=== PATIENT | female | born 1975 | race Caucasian/White ===

== ENCOUNTER 2016-06-28 19:00 | Inpatient (IN) | payer MEDICAID, OTHER ==
[~2016-06-28] VITALS: Ht 154.9 cm; Wt 63.5 kg
[2016-06-28 19:12] VITALS: Ht 154.9 cm; Wt 63.5 kg
[2016-06-28] MEDS ORDERED: FAMOTIDINE 20 MG INJ IV STA (19:41)
[2016-06-28] MEDS ORDERED: ONDANSETRON 4 MG INJ IV STA (19:41)
[2016-06-28] MEDS ORDERED: SOD CHLORIDE 0.9% 1,000 ML IV STA (19:41)
[2016-06-28] MEDS ORDERED: DICYCLOMINE 10 MG CAP PO ONE (20:00)
[2016-06-28 20:02] LABS: ADD SCAN DIFF NO
[2016-06-28 20:03] LABS: ABNORMAL IP MESSAGE 1; HEMATOCRIT 44.7 % (37.0-47.0); HEMOGLOBIN 15.2 g/dl (12.0-16.0); MEAN CORPUSCULAR HEMOGLOBIN 30.2 pg (29.0-33.0); MEAN CORPUSCULAR VOLUME 88.9 fl (82.0-101.0); MEAN PLATELET VOLUME 10.5 fl (7.4-10.4); PLATELET COUNT 322 10^3/UL (140-415); RED BLOOD COUNT 5.03 10^6/ul (4.20-5.40); RED CELL DISTRIBUTION WIDTH 13.3 % (11.5-14.5); WHITE BLOOD COUNT 13.2 10^3/ul (4.8-10.8)
[2016-06-28 20:14] LABS: ADD UMIC YES; URINE BILIRUBIN (Dip) NEGATIVE (NEGATIVE); URINE BLOOD (Dip) TRACE (NEGATIVE); URINE COLOR YELLOW (YELLOW); URINE GLUCOSE (Dip) NEGATIVE (NEGATIVE); URINE KETONES (Dip) NEGATIVE (NEGATIVE); URINE LEUKOCYTE ESTERASE (Dip) NEGATIVE (NEGATIVE); URINE NITRITE (Dip) NEGATIVE (NEGATIVE); URINE TOTAL PROTEIN (Dip) 1+ (NEGATIVE); URINE UROBILINOGEN (Dip) 0.2 E.U./dL (0.1-1.0)
[2016-06-28 20:14] LABS: POTASSIUM 3.4 mmol/L (3.5-5.1)
[2016-06-28 20:16] LABS: BILIRUBIN,INDIRECT 0.3 mg/dl (0-1.1); BILIRUBIN,TOTAL 0.3 mg/dl (0.2-1.3); CREATININE 0.85 mg/dl (0.44-1.00)
[2016-06-28 20:17] LABS: ALBUMIN/GLOBULIN RATIO 1.38; CALCIUM 9.2 mg/dl (8.4-10.2); TOTAL PROTEIN 8.6 g/dl (6.1-8.1)
[2016-06-28 20:31] LABS: SQUAMOUS EPITHELIAL CELL,UR MODERATE; URINE RBCS 0-2 /HPF (0)
[2016-06-28 20:32] LABS: BACTERIA,URINE MODERATE
[2016-06-28 20:36] LABS: LYMPHOCYTES # 0.3 10^3/ul (0.8-2.9); MONOCYTE # 0.8 10^3/ul (0.3-0.9); NEUTROPHIL # 11.1 10^3/ul (1.6-7.5)
[2016-06-28 20:37] LABS: PLATELET ESTIMATE PLT APPEAR ADEQUATE
--- NOTE | 2016-06-28 20:38 | RADRPT ---
PROCEDURE: Right upper quadrant abdominal ultrasound. CLINICAL INDICATION: Abdominal pain TECHNIQUE: Loomis scale and color doppler ultrasound images of the right upper quadrant. COMPARISON: None FINDINGS: Pancreas: Visualized portions appear of normal echogenicity, no focal lesions. Liver: Morphology: Normal in size and contour. Echogenicity: Increased echogenicity of the liver parenchyma suggestive of hepatic steatosis; foca l apparent sparing adjacent to the gallbladder. Focal lesions: None. Main portal vein: Patent with hepatopetal flow. Biliary System: Normal appearing gallbladder wall. No gallstones seen. No intrahepatic biliary dilatation. Common bile duct measures 3.3 mm in maximal dimension. Kidneys: Right 10.4 cm in length. Right renal cortical thickness is preserved. Normal echogenicity. No hydronephrosis. No renal calculi. No focal lesions. No free fluid identified. IMPRESSION: Normal gallbladder without gallstones. Normal caliber intrahepatic and extrahepatic biliary system. Increased echogenicity of the liver suggestive of hepatic steatosis with regional sparing adjacent t o the gallbladder. RPTAT: AADD .Pranay Julio MD, MD Date Time Electronically viewed and signed by .Pranay Julio MD, on 06/28/2016 20:37 .B/
--- NOTE | 2016-06-28 21:44 | ERD ---
ER Documentation Chief Complaint Date/Time DATE: 06/28/16 TIME: 21:39 Chief Complaint Diarrhea, bilateral Upper Quad Ap and Bilateral Pelvic pain x2 days HPI This is a 40-year-old female presents to the ER with upper abdominal pain that started today. Patient also has nausea vomiting and diarrhea. Vomiting is nonbilious nonbloody. Diarrhea is watery and nonbloody. Patient states that abdominal pain is crampy in nature. It is nonradiating. Patient did have a fever earlier today and presents to the ER with a fever. Patient also complaining of pelvic pain for over the last 3 months. Patient has proper follow-up and already got a pelvic ultrasound, she is awaiting results. Patient denies any vaginal discharge, urinary frequency or dysuria. Patient denies alcohol use. ROS 12 point review of systems was done, all negative except per HPI. Allergies Allergies: Coded Allergies: No Known Allergy (Unverified , 06/28/16) PMhx/Soc History of Surgery: No Anesthesia Reaction: No Hx Neurological Disorder: No Hx Respiratory Disorders: No Hx Cardiac Disorders: No Hx Psychiatric Problems: No Hx Miscellaneous Medical Probl: No Hx Alcohol Use: No Hx Substance Use: No Hx Tobacco Use: No Smoking Status: Never smoker Physical Exam Vitals Vital Signs Date Time Temp Pulse Resp B/P Pulse Ox O2 Delivery O2 Flow Rate FiO2 06/28/16 19:12 100.3 102 20 120/77 97 Physical Exam GENERAL: The patient is well developed and appropriate for usual state of health , in no apparent distress. HEENT: Atraumatic. CHEST: Clear to auscultation bilaterally. There are no rales, wheezes or rhonchi. HEART: Regular rate and rhythm. No murmurs, clicks, rubs or gallops. ABDOMEN: Soft, nontender and nondistended. Good bowel sounds. No rebound or guarding. No gross peritonitis. No gross organomegaly or masses. No Apodaca sign or McBurney point tenderness. NEURO: Alert and oriented. Result Diagram: 06/28/16195206/28/161952 Results 24 hrs Laboratory Tests Test 06/28/16 19:53 06/28/16 19:55 White Blood Count 13.210^3/ul Red Blood Count 5.0310^6/ul Hemoglobin 15.2g/dl Hematocrit 44.7% Mean Corpuscular Volume 88.9fl Mean Corpuscular Hemoglobin 30.2pg Mean Corpuscular Hemoglobin Concent 34.0g/dl Red Cell Distribution Width 13.3% Platelet Count 29517^3/UL Mean Platelet Volume 10.5fl Neutrophils % 84.0% Band Neutrophils % 8.0% Lymphocytes % 2.0% Monocytes % 6.0% Neutrophils # 11.110^3/ul Lymphocytes # 0.310^3/ul Monocytes # 0.810^3/ul Platelet Estimate PLT APPEAR ADEQUATE Sodium Level 140mmol/L Potassium Level 3.4mmol/L Chloride Level 101mmol/L Carbon Dioxide Level 26mmol/L Anion Gap 16 Blood Urea Nitrogen 11mg/dl Creatinine 0.85mg/dl Glucose Level 101mg/dl Calcium Level 9.2mg/dl Total Bilirubin 0.3mg/dl Direct Bilirubin 0.00mg/dl Indirect Bilirubin 0.3mg/dl Aspartate Amino Transf (AST/SGOT) 46IU/L Alanine Aminotransferase (ALT/SGPT) 70IU/L Alkaline Phosphatase 81IU/L Total Protein 8.6g/dl Albumin 5.0g/dl Globulin 3.60g/dl Albumin/Globulin Ratio 1.38 Lipase 784U/L Urine Color YELLOW Urine Clarity CLEAR Urine pH 6.0 Urine Specific Tyler >=1.030 Urine Ketones NEGATIVE Urine Nitrite NEGATIVE Urine Bilirubin NEGATIVE Urine Urobilinogen 0.2 E.U./dL Urine Leukocyte Esterase NEGATIVE Urine Microscopic RBC 0-2/HPF Urine Microscopic WBC 0-2/HPF Urine Squamous Epithelial Cells MODERATE Urine Bacteria MODERATE Urine Hemoglobin TRACE Urine Glucose NEGATIVE% Urine Total Protein 1+ Current Medications Medications (Trade) Dose Ordered Sig/Jolene Route PRN Reason Start Time Stop Time Status Last Admin Dose Admin Sodium Chloride (NS) 1,000 ml @ 1,000 mls/hr Q1H STAT IV 06/28/16 19:41 06/28/16 20:40 DC 06/28/16 20:44 Ondansetron HCl (Zofran Inj) 4 mg ONCE STAT IV 06/28/16 19:41 06/28/16 19:44 DC 06/28/16 20:43 Famotidine (Pepcid Iv) 20 mg ONCE STAT IV 06/28/16 19:41 06/28/16 19:44 DC 06/28/16 20:42 Dicyclomine HCl (Bentyl) 10 mg ONCE ONCE PO 06/28/16 20:00 06/28/16 20:01 DC 06/28/16 20:42 Procedures/MDM Differential Diagnosis: GERD, gastritis, peptic ulcer disease, pancreatitis, cholecystitis, choledocholithiasis, biliary colic, cholangitis, Pobg-Ujzx-Oejkus , ACS/NV, Pnuemonia. This is a 40-year-old female presents to the ER with upper abdominal pain. Patient does have pancreatitis. There is no evidence of gallbladder disease to suggest choledocholithiasis or otitis secondary to gallstones. Patient was slightly febrile here in the ER, patient would benefit from admission. Departure Diagnosis: Primary Impression: Pancreatitis Condition: Stable ADRIAN GALAN Jun 28, 2016 21:44
[2016-06-29 00:32] VITALS: PULSE 80; TEMP 99.5
[2016-06-29 02:00] VITALS: BP 120/72; RESP 18
[2016-06-29] MEDS ORDERED: morphine 4 MG/ML VIAL IV PRN (02:30)
[2016-06-29] MEDS ORDERED: ONDANSETRON 4 MG INJ IV PRN (02:30)
[2016-06-29] MEDS: DEXTROSE 5%-0.45% NACL 1,000 ML IV SCH ×2 (02:47→10:30)
[2016-06-29 05:38] LABS: ADD SCAN DIFF NO
[2016-06-29 05:46] LABS: BASOPHILS % 0.2 % (0.0-2.0); EOSINOPHILS % 0.4 % (0.0-7.0); HEMATOCRIT 36.8 % (37.0-47.0); HEMOGLOBIN 12.8 g/dl (12.0-16.0); LYMPHOCYTES # 0.9 10^3/ul (0.8-2.9); LYMPHOCYTES % 11.1 % (15.0-51.0); MEAN CORPUSCULAR HEMOGLOBIN 30.6 pg (29.0-33.0); MEAN CORPUSCULAR HGB CONC 34.8 g/dl (32.0-37.0); MEAN PLATELET VOLUME 10.6 fl (7.4-10.4); MONOCYTE # 0.7 10^3/ul (0.3-0.9); MONOCYTES % 8.8 % (0.0-11.0); NEUTROPHIL # 6.6 10^3/ul (1.6-7.5); NEUTROPHILS % 78.9 % (39.0-77.0); PLATELET COUNT 269 10^3/UL (140-415); RED BLOOD COUNT 4.18 10^6/ul (4.20-5.40); RED CELL DISTRIBUTION WIDTH 13.2 % (11.5-14.5); WHITE BLOOD COUNT 8.4 10^3/ul (4.8-10.8)
[2016-06-29 06:02] LABS: ALBUMIN 3.7 g/dl (3.3-4.9)
[2016-06-29 06:03] LABS: POTASSIUM 3.7 mmol/L (3.5-5.1)
[2016-06-29 06:05] LABS: ALBUMIN/GLOBULIN RATIO 1.27; BILIRUBIN,INDIRECT 0.3 mg/dl (0-1.1); BILIRUBIN,TOTAL 0.3 mg/dl (0.2-1.3); CREATININE 0.74 mg/dl (0.44-1.00); TOTAL PROTEIN 6.6 g/dl (6.1-8.1)
[2016-06-29 06:06] LABS: CALCIUM 8.1 mg/dl (8.4-10.2); MAGNESIUM 2.4 mg/dl (1.7-2.5); PHOSPHORUS 3.5 mg/dl (2.5-4.9)
[2016-06-29] MEDS ORDERED: LEVOFLOXACIN 500MG/D5W (PMX) 100 ML IVPB SCH (06:30)
--- NOTE | 2016-06-29 07:05 | HP ---
DATE OF ADMISSION: 06/28/2016 CHIEF COMPLAINT: Abdominal pain, nausea, and vomiting. HISTORY OF PRESENT ILLNESS: The patient is a 40-year-old female with a history of fatty liver who p resented to the emergency department with a chief complaint of abdominal pain. Pain is diffuse and associated with nausea and nonbloody, nonbilious emesis. The patient also complains of fever. When she presented to the ER, she had a temperature of 100.3, heart rate 102, blood pressure 120/77, res piratory rate 20, oxygen saturation 97% on room air. Laboratory value shows a WBC of 13.2, potassiu m 3.4, ALT 70, and lipase 784. Right upper quadrant ultrasound was done which showed normal gallbla dder without gallstones and normal caliber extra and intrahepatic biliary system. Noted, however, w as increased echogenicity of the liver suggestive of hepatic steatosis. The patient denies alcohol use. She did also complain of pelvic pain of several months' duration for which she has been follow ing as outpatient and actually had a pelvic ultrasound, but she is waiting for the results. REVIEW OF SYSTEMS: A 12-point review of systems was performed and is negative except as mentioned i n HPI. PAST MEDICAL HISTORY: As per HPI. PAST SURGICAL HISTORY: Denies. SOCIAL HISTORY: Denies history of tobacco, alcohol, or illicit drug use. ALLERGIES: NO KNOWN DRUG ALLERGIES. HOME MEDICATIONS: None. PHYSICAL EXAMINATION: VITAL SIGNS: Temperature 99.5. Otherwise, the rest of vital signs are stable. GENERAL: No acute distress, answering questions appropriately, able to speak in full sentences. HEENT: No obvious head deformity. Pupils reactive to light. Extraocular muscles intact. CARDIOVASCULAR: Regular rate and rhythm. No extra sounds. LUNGS: Clear. ABDOMEN: Soft. There is tenderness diffusely with no guarding, rigidity, or rebound tenderness. EXTREMITIES: No edema. NEUROLOGIC: No focal deficits. LABORATORY: Pertinent positive results as mentioned in the HPI. IMPRESSION: 1. Acute pancreatitis. 2. Abdominal pain, most likely secondary to above. 3. Sepsis as evidenced by leukocytosis and tachycardia. Also, the patient with a temperature of 10 0.3. This is likely secondary to pancreatitis. PLAN: Keep n.p.o. with IV fluid. We will provide pain medication and antiemetics as needed. We wi ll do infectious workup. So far, urinalysis is negative for UTI. She will be empirically placed on antibiotics. Further workup and management will be per clinical course. Dictated By: NANCY SELLERS/DAT Conf#: [id number] DID#: [id number]
[2016-06-29 07:44] VITALS: BP 109/64; RESP 16
[2016-06-29] MEDS ORDERED: FAMOTIDINE 20 MG INJ IV SCH (09:00)
--- NOTE | 2016-06-29 11:27 | PDOCDIS ---
Discharge Instructions CONDITION Patient Condition: Good HOME CARE INSTRUCTIONS: Diet Instructions: RegularSpecial Diet: LESS MEAT AND MORE VEGETABLES AND FRUIT ACTIVITY: Activity Restrictions: No Restrictions FOLLOW UP/APPOINTMENTS Appointments F/U WITH A PCP IN 1-2 WEEKS JO KAUFFMAN Jun 29, 2016 11:27
--- NOTE | 2016-06-29 13:45 | DS ---
DATE OF ADMISSION: 06/28/2016 DATE OF DISCHARGE: 06/29/2016 DISCHARGE DIAGNOSIS: Pancreatitis, likely secondary to poor diet with predominantly animal protein. No alcohol abuse, no gallstones noted. Triglycerides were within normal limits. HOSPITAL COURSE: The patient is a 40-year-old female with a history of fatty liver, otherwise no me dical history. The patient presents with abdominal pain, nausea, vomiting. She denies any alcohol abuse. She was noted to have elevated lipase at 74. She had a gallbladder ultrasound that showed n o gallstones, normal caliber, intrahepatic and extrahepatic biliary system. There is evidence of he patic steatosis. The patient stated that she works at an [employer] and eats a signifi cant amount of red meat. She does not eat much vegetables. Of note, the patient's triglycerides we re within normal limits during this hospitalization, but it is felt that her fatty liver and her montes creatitis are likely secondary to poor diet. The patient was advised that she should improve her di et. The patient's lipase did trend down the day of discharge. She did tolerate diet. On the day o f discharge, the patient's vitals, labs, physical exam were stable, had no acute complaints, questio ns were answered. The patient was told to improve her diet, to decrease her animal protein, and to increase vegetable and fruit intake. Once again, the patient's questions were answered. CONDITION ON DISCHARGE: Stable. DISPOSITION: To home. MEDICATIONS: The patient has no reported home medications. No new medications were prescribed. FOLLOWUP: The patient will need to follow up with her PCP in 1 to 2 weeks. Greater than 30 minutes was spent coordinating discharge of patient. Dictated By: JO KAUFFMAN MD BS/NTS Conf#: [id number] DID#: [id number]
== END 2016-06-29 16:55 | disposition home or self-care (01) | DRG 440 ==
LOC: FTE 19:00 → MS2 23:15
PROVIDERS: ADMIT Internal Medicine; ATTEND Internal Medicine
DX: K85.90 Acute pancreatitis without necrosis or infection, unspecified (principal); K76.0 Fatty (change of) liver, not elsewhere classified
CPT/HCPCS: 36415; 76705; 80053; 80061; 81001; 81003; 83690; 83735; 84100; 85025; 87040; 87086; 96374; 96375; J1956; J2405; J7030; J7042